=== PATIENT | female | born 1990 | race Caucasian/White ===

== ENCOUNTER → 2017-07-11 | Outpatient (CLI) | payer OTHER ==
[~2017-07-11] MED LIST: ACTICIN 5% CREA60 G1 TOP; APAP500 PO; COLACE 100 MG100 MG PO; DERMOPLAST SPRA56 ML; IBUPROFEN 800800 M1 PO; IRON325 PO; MACROBID 100 M100 M1 PO; NO HOME MEDS; TUCKS MEDICATE1 EAC1
== END ==
LOC: CAT 09:06
DX: K42.9 Umbilical hernia without obstruction or gangrene (principal); N28.89 Other specified disorders of kidney and ureter

== ENCOUNTER 2020-08-06 08:39 | Emergency (ER) | payer OTHER ==
[~2020-08-06] VITALS: Ht 167.6 cm; Wt 63.5 kg
[2020-08-06] MEDS ORDERED: NAPROSYN500 MG PO (10:27)
[2020-08-06 10:39] VITALS: BP 107/60
== END 2020-08-06 10:39 | disposition home or self-care (01) ==
LOC: ER 08:39
DX: M25.512 Pain in left shoulder (principal); Z79.899 Other long term (current) drug therapy; Z88.8 Allergy status to other drugs, medicaments and biological substances

== ENCOUNTER 2020-09-08 10:31 | Emergency (ER) | payer OTHER ==
[~2020-09-08] VITALS: Ht 167.6 cm; Wt 59.9 kg
[~2020-09-08 10:31] MED LIST changes: +NAPROSYN500 MG PO
[2020-09-08 11:00] LABS: ABSOLUTE NEUTROPHILS 6.7 thou/uL (1.4-8.2); BASOPHILS 0.3 % (0.0-2.0); EOSINOPHILS 0.2 % (0.0-3.0); HEMATOCRIT 41.4 % (37.0-47.0); HEMOGLOBIN 13.9 gm/dL (12.0-15.0); LYMPHOCYTES 16.9 % (24.0-44.0); MCH 31.6 pg (26.0-34.0); MCHC 33.6 g/dL (28.0-37.0); MCV 94.1 fL (80.0-100.0); MONOCYTES 7.7 % (1.0-8.0); PLATELET COUNT 229 thou/uL (150-400); POLYS 74.9 % (36.0-66.0); WBC 8.9 thou/uL (4.0-11.0)
[2020-09-08 11:11] LABS: ANION GAP 10 mmol/L (7-16); BUN 9 mg/dL (7-18); CALCIUM 9.7 mg/dL (8.5-10.1); CHLORIDE 104 mmol/L (98-107); CO2 26 mmol/L (21-32); CREATININE 0.9 mg/dL (0.6-1.0); GLUCOSE 133 mg/dL (74-106); POTASSIUM 3.7 mmol/L (3.5-5.1); SODIUM 140 mmol/L (136-145)
[2020-09-08 11:18] LABS: ALBUMIN 4.6 g/dL (3.4-5.0); SGOT 10 U/L (15-37); SGPT 16 U/L (14-59); TOTAL BILIRUBIN 0.5 mg/dL (0.2-1.0); TOTAL PROTEIN 8.2 g/dL (6.4-8.2); TROPONIN-I <0.06 ng/mL (<0.06)
[2020-09-08 11:56] LABS: URINE BILIRUBIN NEGATIVE (Negative); URINE BLOOD 1+ (Negative); URINE CLARITY CLEAR; URINE COLOR YELLOW; URINE GLUCOSE-RANDOM* NEGATIVE (Negative); URINE KETONES NEGATIVE (Negative); URINE LEUKOCYTES-REFLEX NEGATIVE (Negative); URINE NITRITE-REFLEX NEGATIVE (Negative); URINE PROTEIN (DIPSTICK) NEGATIVE (Negative); URINE SPECIFIC GRAVITY 1.015 (1.005-1.035); URINE UROBILINOGEN 0.2 E.U./dl (0.2-1.0)
[2020-09-08 12:06] LABS: AMP/METHAMP Negative (Negative); BARBITURATES Negative (Negative); BENZODIAZEPINES Negative (Negative); COCAINE Negative (Negative); METHADONE Negative (Negative); OPIATES Negative (Negative); PCP Negative (Negative)
[2020-09-08 12:16] LABS: CASTS None Seen /LPF (None Seen); CRYSTALS None Seen /LPF (None Seen); MUCUS 0-3 Light strn/LPF (None Seen); SQUAMOUS 0-3 Few /LPF (0-3)
[2020-09-08 12:19] LABS: URINE WBC-REFLEX 0-5 Rare /HPF (0-5)
[2020-09-08 12:20] LABS: URINE RBC 1-2 Rare /HPF (NONE SEEN)
[2020-09-08 12:21] LABS: BACTERIA-REFLEX None Seen /HPF (None Seen)
--- NOTE | 2020-09-08 12:26 | EKG ---
[address] [address] ELECTROCARDIOGRAM REPORT Name: BRIAN LEYVA Room #: [id number] Admission: 09/08/20 Attend Phys: Discharge: Date of : [birth year] Report #: [id number] [facility] ED Test Date: 2020-09-08 Test Time: 10:39:19 Pat Name: BRIAN LEYVA Department: Room: Gender: F [employer]: : 1990 Requested By: Cody Vidal Order Number: [id number] MD: Carlito Fernandes Measurements Intervals [place] Rate: 114 P: 73 FL: 153 QRS: 43 QRSD: 117 T: -72 QT: 284 QTc: 392 Interpretive Statements Sinus tachycardia Biatrial enlargement Nonspecific intraventricular conduction delay Borderline repolarization abnormality No previous ECG available for comparison Electronically Signed On 09-08-2020 12:26:26 CDT by Carlito Fernandes [email or web address] <ELECTRONICALLY SIGNED> By: Carlito Fernandes MD, [facility] 09/08/20 1226 1039 1039 Carlito Fernandes MD, FACC /EPI
[2020-09-08 13:01] VITALS: BP 102/62
== END 2020-09-08 13:02 | disposition home or self-care (01) ==
LOC: ER 10:31
PROVIDERS: Emergency Medicine
DX: R00.2 Palpitations (principal); R03.0 Elevated blood-pressure reading, without diagnosis of hypertension; R63.0 Anorexia; Z88.5 Allergy status to narcotic agent

== ENCOUNTER 2020-09-30 18:12 | Emergency (ER) | payer OTHER ==
[~2020-09-30] VITALS: Ht 170.2 cm; Wt 59.0 kg
[2020-09-30 20:51] LABS: ABSOLUTE NEUTROPHILS 6.7 thou/uL (1.4-8.2); BASOPHILS 0.4 % (0.0-2.0); EOSINOPHILS 0.2 % (0.0-3.0); HEMATOCRIT 42.2 % (37.0-47.0); HEMOGLOBIN 14.5 gm/dL (12.0-15.0); LYMPHOCYTES 17.6 % (24.0-44.0); MCH 32.4 pg (26.0-34.0); MCHC 34.4 g/dL (28.0-37.0); MCV 94.3 fL (80.0-100.0); MONOCYTES 10.9 % (1.0-8.0); PLATELET COUNT 244 thou/uL (150-400); POLYS 70.9 % (36.0-66.0); RBC 4.48 mil/uL (4.20-5.00); RDW 12.8 % (10.5-14.5); WBC 9.4 thou/uL (4.0-11.0)
[2020-09-30 20:59] LABS: ANION GAP 9 mmol/L (7-16); BUN 14 mg/dL (7-18); CALCIUM 9.4 mg/dL (8.5-10.1); CHLORIDE 102 mmol/L (98-107); CO2 28 mmol/L (21-32); CREATININE 0.8 mg/dL (0.6-1.0); GLUCOSE 95 mg/dL (74-106); POTASSIUM 3.8 mmol/L (3.5-5.1); SODIUM 139 mmol/L (136-145)
[2020-09-30 21:10] LABS: ALBUMIN 4.5 g/dL (3.4-5.0); SGOT 13 U/L (15-37); SGPT 20 U/L (30-65); TOTAL BILIRUBIN 0.4 mg/dL (0.2-1.0); TOTAL PROTEIN 8.1 g/dL (6.4-8.2); TROPONIN-I <0.06 ng/mL (<0.06)
[2020-09-30 22:14] VITALS: BP 115/60
--- NOTE | 2020-10-01 07:31 | EKG ---
[facility] [place] [address] ELECTROCARDIOGRAM REPORT Name: SHREYAS LEYVAIKE PHILIPPE Room #: DEP [facility]#: [id number] Admission: 09/30/20 Attend Phys: Discharge: 09/30/20 Date of : [birth year] Report #: [id number] [facility] ED Test Date: 2020-09-30 Test Time: 18:16:43 Pat Name: BRIAN LEYVA Department: Room: Gender: F [employer]: UQINCY : 1990 Requested By: Cody Vidal Order Number: [id number] MD: Carlito Fernandes Measurements Intervals [place] Rate: 103 P: 75 MA: 117 QRS: 62 QRSD: 84 T: -67 QT: 327 QTc: 428 Interpretive Statements Sinus tachycardia LAE, consider biatrial enlargement RSR' in V1 or V2, right VCD or RVH Compared to ECG 09/08/2020 10:39:19 Right ventricular hypertrophy now present RSR' in V1 or V2 now present Intraventricular conduction delay no longer present Electronically Signed On 10-01-2020 7:31:03 CDT by Carlito Fernandes [email or web address] <ELECTRONICALLY SIGNED> By: Carlito Fernandes MD, FAC 10/01/20 0731 181 15 Carlito Fernandes MD, [facility] /EPI
== END 2020-09-30 22:15 | disposition home or self-care (01) ==
LOC: ER 18:12
PROVIDERS: Physician Assistant
DX: R00.2 Palpitations (principal); R00.0 Tachycardia, unspecified; Z88.5 Allergy status to narcotic agent

== ENCOUNTER → 2020-10-01 | Outpatient (CLI) | payer OTHER | LOC: SJCVCIMAG 13:24 | PROVIDERS: ATTEND Internal Medicine Cardiovascular Disease | DX: R94.31 Abnormal electrocardiogram [ECG] [EKG] (principal); I07.1 Rheumatic tricuspid insufficiency; R20.2 Paresthesia of skin; R00.0 Tachycardia, unspecified ==